=== PATIENT | male | born 1985 | race African-American/Black ===

== ENCOUNTER 2017-05-30 23:35 | Emergency (ER) | payer MEDICAID ==
[~2017-05-30] VITALS: Ht 177.8 cm; Wt 73.0 kg
[2017-05-31] MEDS ORDERED: ONDANSETRON 4MG ODT PO STA (01:11)
[2017-05-31] MEDS ORDERED: MAGNESIUM/ALUMINUM HYDROXIDE/SIMETHICONE 30ML UDC PO STA (01:11)
[2017-05-31] MEDS ORDERED: KETOROLAC 60MG/2ML VIAL IM STA (01:11)
[2017-05-31 01:32] LABS: HEMATOCRIT. 40.1 % (42.0-52.0); HEMOGLOBIN. 13.1 g/dL (14.0-18.0); MEAN CORPUSCULAR VOLUME 85.7 fL (80.0-94.0); MEAN PLATELET VOLUME 9.6 fl (7.4-10.4); PLATELET 187 x1000/uL (130-400); RED BLOOD CELL COUNT 4.68 mill/uL (4.7-6.1); RED CELL DISTRIBUTION WIDTH 13.7 % (11.6-14.6)
[2017-05-31 01:38] LABS: CHLORIDE 103 mEq/L (98-107)
[2017-05-31 01:39] LABS: PROTHROMBIN TIME 10.5 sec (9.4-11.6)
[2017-05-31 01:57] LABS: PLATELET ESTIMATE NORMAL
[2017-05-31 03:42] LABS: CLARITY URINE CLEAR (CLEAR); COLOR URINE YELLOW (YELLOW); KETONES URINE TRACE (NEGATIVE); LEUKOCYTE ESTERASE URINE NEGATIVE (NEGATIVE); NITRITE URINE NEGATIVE (NEGATIVE); OCCULT BLOOD URINE NEGATIVE (NEGATIVE); PROTEIN URINE NEGATIVE (NEGATIVE); SPECIFIC GRAVITY URINE 1.038 (1.005-1.030)
[2017-05-31 07:02] VITALS: BP 114/65
== END 2017-05-31 07:13 | disposition home or self-care (01) ==
LOC: ER 23:35
DX: M79.672 Pain in left foot (principal); R10.13 Epigastric pain; R12 Heartburn; F17.200 Nicotine dependence, unspecified, uncomplicated; F12.10 Cannabis abuse, uncomplicated; W34.00XA Accidental discharge from unspecified firearms or gun, initial encounter; Y93.89 Activity, other specified; Y92.89 Other specified places as the place of occurrence of the external cause; Y99.8 Other external cause status
CPT/HCPCS: 36415; 73630; 80053; 81003; 83690; 85025; 85610; 93005; 96372; 99285; J1885; Q0162; Z7610

== ENCOUNTER 2017-10-06 09:19 | Emergency (ER) | payer MEDICAID ==
[~2017-10-06] VITALS: Ht 177.8 cm; Wt 73.0 kg
[2017-10-06] MEDS ORDERED: IBUPROFEN 800MG TABLET PO ONE (12:45)
[2017-10-06] MEDS ORDERED: ACETAMINOPHEN WITH CODEINE 300/30MG TABLET PO ONE (13:45)
[2017-10-06 15:40] VITALS: BP 118/65
== END 2017-10-06 16:11 | disposition home or self-care (01) ==
LOC: ER 09:19
DX: S70.01XA Contusion of right hip, initial encounter (principal); M54.5 Low back pain; F12.10 Cannabis abuse, uncomplicated; V49.88XA Car occupant (driver) (passenger) injured in other specified transport accidents, initial encounter; Y93.89 Activity, other specified; Y92.89 Other specified places as the place of occurrence of the external cause; Y99.8 Other external cause status
CPT/HCPCS: 72100; 73521; 99284

== ENCOUNTER 2018-11-19 19:35 | Emergency (ER) | payer MEDICAID, OTHER ==
[~2018-11-19] VITALS: Ht 177.8 cm; Wt 75.0 kg
[2018-11-19 23:39] VITALS: BP 126/86
== END 2018-11-19 23:35 | disposition home or self-care (01) ==
LOC: ER 19:35
DX: M77.12 Lateral epicondylitis, left elbow (principal); M25.551 Pain in right hip; F17.200 Nicotine dependence, unspecified, uncomplicated; F12.10 Cannabis abuse, uncomplicated; Z98.890 Other specified postprocedural states
CPT/HCPCS: 99281

== ENCOUNTER 2018-11-23 15:36 | Emergency (ER) | payer OTHER | END 2018-11-23 17:15 | disposition left against medical advice (07) | LOC: ER 17:12 | DX: Z53.21 Procedure and treatment not carried out due to patient leaving prior to being seen by health care provider (principal) ==

== ENCOUNTER 2023-09-15 18:40 | Emergency (ER) | payer OTHER ==
[~2023-09-15] VITALS: Ht 177.8 cm; Wt 74.8 kg
[2023-09-15 18:47] VITALS: TEMP 98.4; O2SAT 96
[2023-09-16 00:26] VITALS: BP 105/58; PULSE 111; RESP 16
[2023-09-16] MEDS: HYDROCODONE/ACETAMINOPHEN 10/325MG TABLET PO ONE (00:26)
[2023-09-16] MEDS ORDERED: IBUP-2029 MT (00:56)
== END 2023-09-16 01:29 | disposition home or self-care (01) ==
LOC: ER 18:40
DX: S62.302A Unspecified fracture of third metacarpal bone, right hand, initial encounter for closed fracture (principal); F12.10 Cannabis abuse, uncomplicated; Y08.89XA Assault by other specified means, initial encounter; Y93.89 Activity, other specified; Y92.89 Other specified places as the place of occurrence of the external cause; Y99.8 Other external cause status
CPT/HCPCS: 29125; 73140; 99283